=== PATIENT | female | born 1965 | race Caucasian/White ===

== ENCOUNTER → 2016-12-28 | Outpatient (CLI) | payer BC ==
[~2016-12-28] MED LIST: AGM875 PO; ALL180 PO; AMLO-110 PO; ASPI81TA28 PO; ATOR-22 PO; CHOL1000 PO; DIPH1TAB87 PO; EPP3/2 IM; FRRS300 PO; HYDR25TA5 PO; HYDUNK; INSULIN; KRIL1CAP24; LSN40 PO; LSNUNK; LVMI SQ; METF-384 PO; NVLG SQ; SERT25TA PO; SYN175 PO; VERAPAMIL; ZOCOR
[2016-12-28 16:49] LABS: URINE APPEARANCE CLEAR (CLEAR); URINE BILIRUBIN NEG (NEG); URINE COLOR YELLOW; URINE EPITHELIAL CELL AUTO >30 /lpf (0-5); URINE NITRITE NEG (NEG); URINE SPECIFIC GRAVITY 1.025 (1.000-1.030); UROBILINOGEN NEG (NEG)
[2016-12-28 16:52] LABS: MANUAL MICROSCOPIC REQUIRED? NO; REVIEW REQ? NO
[2016-12-28 17:00] LABS: BLOOD UREA NITROGEN 21 mg/dl (7-18); BUN/CREATININE RATIO 22.3 (10-20); CALCIUM 9.1 mg/dl (8.5-10.1); CARBON DIOXIDE 25 mmol/L (21-32); CHLORIDE 101 mmol/L (98-107); CREATININE 0.96 mg/dl (0.60-1.20); GLUCOSE 237 mg/dl (70-99); PHOSPHORUS 3.4 mg/dl (2.5-4.9); POTASSIUM 3.4 mmol/L (3.5-5.1); SODIUM 136 mmol/L (136-145)
[2016-12-28 17:01] LABS: URINE PROTIEN/CREAT RATIO 0.1 (0-0.2); URINE TOTAL PROTEIN 7.7 mg/dl (0-11.9)
[2016-12-28 18:01] LABS: HEMATOCRIT 37.5 % (37-47); MEAN CELL VOLUME 76.4 fL (80-100); MEAN CORPUSCULAR HEMOGLOBIN 25.1 pg (25-34); MEAN CORPUSCULAR HGB CONC 32.8 g/dl (32-36); MEAN PLATELET VOLUME 9.7 fL (7.4-10.4); PLATELET COUNT 257 K/uL (130-400); RED BLOOD COUNT 4.91 M/uL (4.2-5.4); WHITE BLOOD COUNT 9.76 K/uL (4.8-10.8)
== END | disposition home or self-care (01) ==
LOC: C.LAB1850 15:42
PROVIDERS: ATTEND Internal Medicine Nephrology
DX: R80.9 Proteinuria, unspecified (principal); E55.9 Vitamin D deficiency, unspecified; N25.81 Secondary hyperparathyroidism of renal origin; N18.2 Chronic kidney disease, stage 2 (mild); I12.9 Hypertensive chronic kidney disease with stage 1 through stage 4 chronic kidney disease, or unspecified chronic kidney disease

== ENCOUNTER 2017-04-22 08:27 | Emergency (ER) | payer BC ==
[~2017-04-22] VITALS: Ht 172.7 cm; Wt 128.0 kg
[~2017-04-22 08:27] MED LIST changes: -AMLO-110 PO; -ASPI81TA28 PO; -ATOR-22 PO; -CHOL1000 PO; -DIPH1TAB87 PO; -EPP3/2 IM; -HYDR25TA5 PO; -KRIL1CAP24; -LSN40 PO; -LVMI SQ; -METF-384 PO; -NVLG SQ; -SYN175 PO
[2017-04-22 08:35] VITALS: O2SAT 93
[2017-04-22 08:36] VITALS: TEMP 36.7; Ht 172.7 cm; Wt 128.0 kg
[2017-04-22] MEDS ORDERED: EpINEphrine INJ 1MG/ML AMP 1 MG/ML AMP IM STA (08:36)
[2017-04-22] MEDS ORDERED: IPRATROPIUM BROMIDE NEB SOLN 0.02% 2.5 ML VIAL INH STA (08:36)
[2017-04-22] MEDS ORDERED: LEVALBUTEROL 1.25MG/0.5ML NEB INH STA (08:36)
--- NOTE | 2017-04-22 08:48 | EMERGENCY ROOM VISIT NOTE ---
History Report prepared by Karuna: Aida Ramsay Under the Supervision of: Dr. Mason Medrano M.D. First contact with patient: 08:30 Stated Complaint: ALLERGIC REACTION History of Present Illness The patient is a 52 year old female who presents to the Emergency Room with complaints of a sudden allergic reaction that began prior to arrival. The patient states that before leaving for work this morning she took an Aleve, along with her other daily morning medications. She states that she began feeling numb, but additionally notes that she has a history of neuropathy. The patient states that she began noticing tongue swelling, lip swelling, and difficulty breathing. She denies any itchiness or rash. The patient denies any bee sting or insect bite. She reports a history of diabetes, hypertension and high cholesterol. The patient reports taking Lisinopril for her hypertension, noting that she took it this morning prior to leaving for work. She denies any personal history of heart disease, but reports a family history of heart disease. Per EMS, the patient was given 80 of Solu-Medrol and 50 mg of Benadryl prior to arrival. Source of History: patient, EMS Onset: prior to arrival Position: other (global) Quality: other (allergic reaction) Timing: other (sudden) Associated Symptoms: + numbness, No rash Note: Associated Symptoms: tongue swelling, lip swelling, difficulty breathing Review of Systems See HPI for pertinent positives & negatives. A total of 10 systems reviewed and were otherwise negative. Past Medical & Surgical Medical Problems: (1) Diabetes (2) High cholesterol (3) Hypertension (4) Neuropathy Family History FH: heart disease Social History Marital Status: in relationship Occupation Status: employed Current/Historical Medications Scheduled Amlodipine (Norvasc), Unknown Dose PO DAILY Aspirin (Aspirin Ec), 81 MG PO DAILY Atorvastatin (Lipitor), Unknown Dose PO DAILY Cholecalciferol (Vitamin D3), Unknown Dose PO DAILY Diphenhydramine Hcl (Benadryl Allergy), 50 MG PO Q6 Epinephrine (Epipen 2-Alec), 1 DOSE IM DIRECTED Hydrochlorothiazide (Hydrochlorothiazide), Unknown Dose PO DAILY Insulin Aspart (Novolog), 20 UNITS SQ TIDM Insulin Detemir (Levemir), 95 UNITS SQ HS Levothyroxine Sodium (Synthroid), 175 MCG PO DAILY Lisinopril (Lisinopril), 40 MG PO DAILY Metformin Hcl (Glucophage), 1,000 MG PO BID Miscellaneous Medications Krill Oil (Krill Oil 500 mg) Allergies Coded Allergies: No Known Allergies (Verified , 04/22/17) Physical Exam Vital Signs Date Time Temp Pulse Resp B/P (MAP) Pulse Ox O2 Delivery O2 Flow Rate FiO2 04/22/17 12:32 86 18 123/74 96 Room Air 04/22/17 10:33 97 20 97/49 93 Room Air 04/22/17 09:11 115 22 136/94 95 Room Air 04/22/17 08:52 112 18 97 Room Air 04/22/17 08:42 113 04/22/17 08:36 94 Room Air 04/22/17 08:36 36.7 114 20 139/93 94 Room Air 04/22/17 08:35 93 Room Air Physical Exam GENERAL: Patient is in no acute distress. HEENT: No acute trauma, normocephalic atraumatic, mild lip edema, no uvular edema, mucous membranes moist, no nasal congestion, no scleral icterus. NECK: No stridor, no adenopathy, no meningismus, trachea is midline. LUNGS: Clear to auscultation bilaterally, no wheeze, no rhonchi, breath sounds equal. HEART: Mildly tachycardic with a regular rhythm, no murmurs. ABDOMEN: Soft, nontender, bowel sounds positive, no hernias, no peritonitis. EXTREMITIES: No cyanosis or edema, full range of motion of all the joints without pain or difficulty, no signs for acute trauma. NEUROLOGIC: Oriented x 3, no acute motor or sensory deficits, no focal weakness. SKIN: No rash, no jaundice, no diaphoresis. No hives. Medical Decision & Procedures Laboratory Results Test 04/22/17 08:43 Bedside Glucose 347 mg/dl (70-90) Laboratory results reviewed by me. Medications Administered Medications (Trade) Dose Ordered Sig/Aleksandr Route Start Time Stop Time Status Last Admin Dose Admin Epinephrine HCl (EpINEphrine INJ 1MG/ML AMP/VIAL) 0.3 mg NOW STAT IM 04/22/17 08:36 04/22/17 08:39 DC 04/22/17 08:46 0.3 MG Levalbuterol (Xopenex 1.25MG/ 0.5ML Neb) 1.25 mg NOW STAT INH 04/22/17 08:36 04/22/17 08:39 DC 04/22/17 08:52 1.25 MG Ipratropium Sunshine (Atrovent 0.02% 0.5MG/2.5ML Neb) 0.5 mg NOW STAT INH 04/22/17 08:36 04/22/17 08:39 DC 04/22/17 08:50 0.5 MG Insulin Human Regular (novoLIN-R U-100 PER UNIT) 25 units NOW STAT SQ 04/22/17 10:31 04/22/17 10:32 DC 04/22/17 11:32 25 UNITS ECG Indication: other (allergic reaction) Rate (beats per minute): 109 Rhythm: sinus tachycardia Findings: no acute ischemic change, no ectopy ED Course 0832: The patient was evaluated in room A10. A complete history and physical exam was performed. 0836: Ordered Ipratropium Sunshine 0.5 mg INH, Levalbuterol 1.25 mg INH, Epinephrine HCl 0.3 mg IM. 0858: I reevaluated the patient and she is resting comfortably. 0936: I reevaluated the patient and she is doing well. 1031: Ordered Insulin Human Regular 25 units SQ. 1233: I reevaluated the patient and she is back to baseline. I discussed the exam findings with her and I discussed the treatment plan. She verbalized complete understanding and agreement. She is ready to go home. Medical Decision The patient is a 52 year old female who presents to the ED with complaints of an allergic reaction. Differential diagnoses considered include Angioedema secondary to medication, allergic reaction, anaphylaxis, uvular edema, wheezing , environmental or food allergy. The patient presents with some lip and tongue swelling. She felt slightly short of breath. This started after her morning medications, this medication regimen included an LIZZ inhibitor. She also states that today, she took an Aleve around the same time. The patient received Solu-Medrol and Benadryl prior to arrival. Here, she was a dose of IM epinephrine. She received a Xopenex Atrovent neb. The patient has been here for around 4 hours. Her symptoms have resolved, she looks well and feels at baseline. The patient received a dose of subcutaneous insulin for a higher blood sugar. She states this is the normal amount of insulin she would take for a value in the 300s. I'm not sure if this presentation was angioedema from her LIZZ inhibitor or possibly, an allergic reaction from the Aleve. She will stop both. She does not want any steroids to use as this will affect her sugar too greatly. She will be on Benadryl and I am prescribing an EpiPen. She will follow with her doctors office and return here for worsening symptoms. Impression Primary Impression: Lip swelling Additional Impression: Angioedema Scribe Attestation The scribe's documentation has been prepared under my direction and personally reviewed by me in its entirety. I confirm that the note above accurately reflects all work, treatment, procedures, and medical decision making performed by me. Departure Information Dispostion Home / Self-Care Prescriptions Epinephrine (EPIPEN 2-ALEC) 0.3 Mg Inj 1 DOSE IM DIRECTED, #1 APPL 2 Refills Prov: Mason Medrano M.D. 04/22/17 Diphenhydramine Hcl (BENADRYL ALLERGY) 25 Mg Tab 50 MG PO Q6 for 3 Days, #24 TAB Prov: Mason Medrano M.D. 04/22/17 Referrals Tita Greene M.D. (PCP) Forms HOME CARE DOCUMENTATION FORM, IMPORTANT VISIT INFORMATION Patient Instructions My [facility] Additional Instructions hold lisinopril hold aspirin and any aleve, motrin, advil or ibuprofen see your doctor in follow up as soon as you are able benadryl 2 tab every 6 hours for 3 days epipen with you at all times and use it if worsening return to the ER if worsening we are not sure if this was the aleve or the lisinopril Problem Qualifiers
[2017-04-22 08:52] VITALS: PULSE 112; O2SAT 97
[2017-04-22] MEDS ORDERED: NVLG SQ (09:05)
[2017-04-22] MEDS ORDERED: KRIL1CAP24 (09:05)
[2017-04-22] MEDS ORDERED: ATOR-22 PO (09:05)
[2017-04-22] MEDS ORDERED: LVMI SQ (09:05)
[2017-04-22] MEDS ORDERED: HYDR25TA5 PO (09:05)
[2017-04-22] MEDS ORDERED: SYN175 PO (09:05)
[2017-04-22] MEDS ORDERED: ASPI81TA28 PO (09:05)
[2017-04-22] MEDS ORDERED: AMLO-110 PO (09:05)
[2017-04-22] MEDS ORDERED: METF-384 PO (09:05)
[2017-04-22] MEDS ORDERED: LSN40 PO (09:05)
[2017-04-22] MEDS ORDERED: CHOL1000 PO (09:06)
[2017-04-22] MEDS ORDERED: NovoLIN-R INSULIN PER UNIT CHARGE SQ STA (10:31)
[2017-04-22 12:32] VITALS: BP 123/74; PULSE 86; O2SAT 96
[2017-04-22] MEDS ORDERED: EPP3/2 IM (12:43)
[2017-04-22] MEDS ORDERED: DIPH1TAB PO (12:43)
== END 2017-04-22 12:54 | disposition home or self-care (01) ==
LOC: C.EDA 08:27 → EDBD 08:27 → C.EDA 12:54
DX: R22.0 Localized swelling, mass and lump, head (principal); T78.3XXA Angioneurotic edema, initial encounter; X58.XXXA Exposure to other specified factors, initial encounter; E11.9 Type 2 diabetes mellitus without complications; E78.00 Pure hypercholesterolemia, unspecified; I10 Essential (primary) hypertension; Z82.49 Family history of ischemic heart disease and other diseases of the circulatory system; Z79.82 Long term (current) use of aspirin; Z79.4 Long term (current) use of insulin

== ENCOUNTER → 2017-06-22 | Outpatient (CLI) | payer BC ==
[~2017-06-22] MED LIST changes: -AGM875 PO; -ALL180 PO; +AMLO-110 PO; +ASPI81TA28 PO; +ATOR-22 PO; +CHOL1000 PO; +DIPH1TAB PO; +EPP3/2 IM; -FRRS300 PO; +HYDR25TA5 PO; -HYDUNK; -INSULIN; +KRIL1CAP24; +LSN40 PO; -LSNUNK; +LVMI SQ; +METF-384 PO; +NVLG SQ; -SERT25TA PO; +SYN175 PO; -VERAPAMIL; -ZOCOR
[2017-06-22 10:05] LABS: HEMATOCRIT 40.6 % (37-47); MEAN CELL VOLUME 74.5 fL (80-100); MEAN CORPUSCULAR HEMOGLOBIN 24.6 pg (25-34); MEAN PLATELET VOLUME 9.4 fL (7.4-10.4); PLATELET COUNT 305 K/uL (130-400); RED BLOOD COUNT 5.45 M/uL (4.2-5.4); WHITE BLOOD COUNT 10.21 K/uL (4.8-10.8)
[2017-06-22 10:26] LABS: URINE APPEARANCE CLEAR (CLEAR); URINE BILIRUBIN NEG (NEG); URINE COLOR YELLOW; URINE EPITHELIAL CELL AUTO >30 /lpf (0-5); URINE NITRITE NEG (NEG); URINE SPECIFIC GRAVITY 1.013 (1.000-1.030); UROBILINOGEN NEG (NEG)
[2017-06-22 10:28] LABS: MANUAL MICROSCOPIC REQUIRED? NO; REVIEW REQ? NO
[2017-06-22 10:31] LABS: CREATININE, URINE 90.6 mg/dl; URINE PROTIEN/CREAT RATIO 0.1 (0-0.2); URINE TOTAL PROTEIN 6.8 mg/dl (0-11.9)
[2017-06-22 10:33] LABS: BLOOD UREA NITROGEN 14 mg/dl (7-18); BUN/CREATININE RATIO 15.8 (10-20); CALCIUM 9.6 mg/dl (8.5-10.1); CARBON DIOXIDE 27 mmol/L (21-32); CHLORIDE 101 mmol/L (98-107); CREATININE 0.86 mg/dl (0.60-1.20); GLUCOSE 158 mg/dl (70-99); POTASSIUM 3.9 mmol/L (3.5-5.1); SODIUM 137 mmol/L (136-145)
[2017-06-22 10:34] LABS: PHOSPHORUS 4.3 mg/dl (2.5-4.9)
== END | disposition home or self-care (01) ==
LOC: C.LAB1850 09:06
PROVIDERS: ATTEND Internal Medicine Nephrology
DX: I12.9 Hypertensive chronic kidney disease with stage 1 through stage 4 chronic kidney disease, or unspecified chronic kidney disease (principal); R80.9 Proteinuria, unspecified; N25.81 Secondary hyperparathyroidism of renal origin; E55.9 Vitamin D deficiency, unspecified; N18.2 Chronic kidney disease, stage 2 (mild)

== ENCOUNTER → 2017-11-17 | Outpatient (CLI) | payer BC ==
[~2017-11-17] MED LIST changes: -DIPH1TAB PO; +DIPH1TAB87 PO
--- NOTE | 2017-11-17 15:07 | MAMMOGRAPHY REPORT ---
BILATERAL DIGITAL SCREENING MAMMOGRAM TOMOSYNTHESIS WITH CAD: 11/17/2017 CLINICAL HISTORY: Routine screening. Patient has no complaints. TECHNIQUE: Breast tomosynthesis in addition to standard 2D mammography was performed. Current study was also evaluated with a Computer Aided Detection (CAD) system. COMPARISON: Comparison is made to exams dated: 09/03/2013 mammogram, 09/10/2014 mammogram, 08/31/2012 [facility], and 05/12/2007. BREAST COMPOSITION: The tissue of both breasts is almost entirely fatty. FINDINGS: No suspicious masses, calcifications, or areas of architectural distortion are noted in ei ther breast. There has been no significant interval change compared to prior exams. Scattered bilater al benign-appearing calcifications are not significantly changed. IMPRESSION: ACR BI-RADS CATEGORY 2: BENIGN There is no mammographic evidence of malignancy. A 1 year screening mammogram is recommended. The pa tient will receive written notification of the results. Approximately 10% of breast cancers are not detected with mammography. A negative mammographic report should not delay biopsy if a clinically suggestive mass is present. Reva Garcia M.D. /:11/17/2017 14:07:36 Commercial Intern: Madelyn JUDGE(Nain)(M), [facility] letter sent: Normal 1/2 BI-RADS Code: ACR BI-RADS Category 2: Benign
== END | disposition home or self-care (01) ==
LOC: C.MAMM 13:32
PROVIDERS: ATTEND Family Medicine
DX: Z12.31 Encounter for screening mammogram for malignant neoplasm of breast (principal)

== ENCOUNTER → 2018-01-11 | Outpatient (CLI) | payer BC ==
[2018-01-11 09:46] LABS: HEMATOCRIT 37.2 % (37-47); HEMOGLOBIN 12.2 g/dL (12.0-16.0); MEAN CORPUSCULAR HEMOGLOBIN 24.3 pg (25-34); MEAN CORPUSCULAR HGB CONC 32.8 g/dl (32-36); MEAN PLATELET VOLUME 9.6 fL (7.4-10.4); PLATELET COUNT 265 K/uL (130-400); RED CELL DISTRIBUTION WIDTH CV 14.9 % (11.5-14.5); RED CELL DISTRIBUTION WIDTH SD 39.7 fL (36.4-46.3); WHITE BLOOD COUNT 6.24 K/uL (4.8-10.8)
[2018-01-11 10:10] LABS: ALBUMIN 3.3 gm/dl (3.4-5.0); BLOOD UREA NITROGEN 14 mg/dl (7-18); CALCIUM 8.7 mg/dl (8.5-10.1); CARBON DIOXIDE 25 mmol/L (21-32); CREATININE 0.92 mg/dl (0.60-1.20); GLUCOSE 158 mg/dl (70-99); PHOSPHORUS 3.9 mg/dl (2.5-4.9); SODIUM 140 mmol/L (136-145)
== END | disposition home or self-care (01) ==
LOC: C.LAB1850 07:29
PROVIDERS: ATTEND Internal Medicine Nephrology
DX: I12.9 Hypertensive chronic kidney disease with stage 1 through stage 4 chronic kidney disease, or unspecified chronic kidney disease (principal); N18.9 Chronic kidney disease, unspecified; R80.9 Proteinuria, unspecified; E55.9 Vitamin D deficiency, unspecified; N25.81 Secondary hyperparathyroidism of renal origin